=== PATIENT | female | born 1955 | race Caucasian/White ===

== ENCOUNTER 2019-02-01 07:19 | Day surgery (SDC) | payer OTHER ==
[2019-01-27 15:20] VITALS: BMI 24.7
[2019-02-01] MEDS ORDERED: LIDOCAINE HCL/PF 2% SDV 5ML VIAL ONE (07:55)
[2019-02-01] MEDS ORDERED: PROPOFOL 20 ML ONE ×2 (07:55)
[2019-02-01 08:47] VITALS: TEMP 97.5
[2019-02-01 09:25] VITALS: BP 126/71; PULSE 73
--- NOTE | 2019-02-03 16:39 | PATH ---
Surgical Pathology Report Patient Name: CARRIE REAL [facility]. Rec. #: [id number] /Age/Gender: 1955 (Age: 63) / F Account: [id number] Location: [facility] Taken: 02/01/2019 Received: 02/01/2019 Reported: 02/03/2019 Physicians: Brian Billingsley M.D. Specimen(s) Received CECUM Clinical History History of polyps Postoperative diagnosis: Polyp Final Diagnosis CECUM, BIOPSY: TUBULAR ADENOMA. Electronically Signed Randi Cassidy M.D. Gross Description Received in formalin, labeled "cecum" are 5 stoddard, irregular portions of soft tissue ranging from 0.2-0.5 cm. in greatest dimension. The specimens are submitted in toto in one cassette. 02/02/201902/02/2019
== END 2019-02-01 09:20 | disposition home or self-care (01) ==
LOC: FASU-ENDO 07:19
PROVIDERS: ATTEND Internal Medicine Gastroenterology
PROC: 0DBH8ZX Excision of Cecum, Via Natural or Artificial Opening Endoscopic, Diagnostic (ICD-10-PCS; principal; 2019-02-01 08:21)
DX: Z86.010 Personal history of colon polyps (principal); D12.0 Benign neoplasm of cecum
CPT/HCPCS: 88305-TC